=== PATIENT | male | born 1955 | race American Indian/Alaskan Native ===

== ENCOUNTER 2020-03-07 09:22 | Emergency (ER) | payer OTHER ==
--- NOTE | 2020-03-07 09:55 | Emergency Department Report ---
ED Lower Extremity HPI - General Chief Complaint: Extremity Problem,Nontraumatic Stated Complaint: RIGHT LIEG PAIN Time Seen by Provider: 03/07/20 09:53 Source: patient Mode of arrival: Ambulatory Limitations: No Limitations - History of Present Illness Initial Comments: 64-year-old male was brought to the ER today by EMS with complaints of bleeding from a vein in his right thigh. Patient reports that he got up this morning to use the bathroom, while sitting on the toilet commode he noticed there was blood dripping down his right leg. When he looked further he noticed that 1 of his varicose veins to his right thigh was bleeding. Patient states that he could not get the bleeding under control so he called EMS. Pressure dressing was applied by EMS, and since patient has arrived in the ER bleeding has been controlled. He denies any obvious injury to the leg. He denies any pain or any other symptoms today. MD Complaint: other (Bleeding from right thigh) -: Sudden (this morning) Injury: Thigh: Right - Related Data Home Medications Medication Instructions Recorded Confirmed Last Taken Diclofenac Sodium 75 mg PO BID PRN 04/24/17 04/24/17 Unknown Gabapentin 300 mg PO TID 04/24/17 04/24/17 Unknown Sildenafil Citrate [Viagra] 100 mg PO DAILY PRN 04/24/17 04/24/17 Unknown lisinopriL [Zestril TAB] 5 mg PO DAILY 04/24/17 04/24/17 Unknown Previous Rx's Medication Instructions Recorded Last Taken Type Aspirin 325 mg PO QDAY #30 tablet 04/26/17 Unknown Rx AtorvaSTATin [Lipitor] 80 mg PO QHS #30 tablet 04/26/17 Unknown Rx Famotidine [Pepcid] 20 mg PO QDAY #30 tablet 04/26/17 Unknown Rx Allergies Allergy/AdvReac Type Severity Reaction Status Date / Time No Known Allergies Allergy Verified 04/24/17 10:39 ED Review of Systems ROS: Stated complaint: RIGHT LIEG PAIN Other details as noted in HPI Comment: All other systems reviewed and negative Constitutional: denies: chills, fever Respiratory: denies: cough, shortness of breath, wheezing Cardiovascular: denies: chest pain, palpitations Musculoskeletal: denies: back pain, joint swelling, arthralgia Neurological: denies: headache, weakness, paresthesias Hematological/Lymphatic: easy bleeding ED Past Medical Hx - Past Medical History Previous Medical History?: Yes Hx Hypertension: Yes Hx Heart Attack/AMI: Yes (CAD) Hx Congestive Heart Failure: Yes Hx Diabetes: No Hx Asthma: No Hx COPD: No - Surgical History Past Surgical History?: Yes Hx Pacemaker: Yes - Social History Smoking Status: Never Smoker Substance Use Type: None - Medications Home Medications: Home Medications Medication Instructions Recorded Confirmed Last Taken Type Diclofenac Sodium 75 mg PO BID PRN 04/24/17 04/24/17 Unknown History Gabapentin 300 mg PO TID 04/24/17 04/24/17 Unknown History Sildenafil Citrate [Viagra] 100 mg PO DAILY PRN 04/24/17 04/24/17 Unknown History lisinopriL [Zestril TAB] 5 mg PO DAILY 04/24/17 04/24/17 Unknown History Aspirin 325 mg PO QDAY #30 tablet 04/26/17 Unknown Rx AtorvaSTATin [Lipitor] 80 mg PO QHS #30 tablet 04/26/17 Unknown Rx Famotidine [Pepcid] 20 mg PO QDAY #30 tablet 04/26/17 Unknown Rx ED Physical Exam - General Limitations: No Limitations General appearance: alert, in no apparent distress - Head Head exam: Present: atraumatic, normocephalic, normal inspection - Respiratory Respiratory exam: Present: normal lung sounds bilaterally. Absent: respiratory distress - Cardiovascular Cardiovascular Exam: Present: regular rate, normal rhythm. Absent: systolic murmur, diastolic murmur, rubs, gallop - Extremities Exam Extremities exam: Present: other (Pressure dressing noted to the right thigh, this was removed by me, patient does have a small scabbed area over a varicose vein noted to the posterior right thigh. No active bleeding noted. No signs of infection. No tenderness on palpation.) ED Course Vital Signs 03/07/20 09:29 Temperature 98.3 F Pulse Rate 76 Respiratory 20 Rate Blood Pressure 116/76 O2 Sat by Pulse 96 Oximetry ED Lower Extremity MDM - Medical Decision Making Patient had a bleeding varicose vein which started this morning. Bleeding has now improved with pressure dressing. There is no signs of infection. Patient has no other complaints. Discussed with patient to continue pressure dressing today and elevation of the leg. Recommend close follow-up with his PCP. He understands if anything changes or worsens to return to the ER. Critical care attestation.: If time is entered above; I have spent that time in minutes in the direct care of this critically ill patient, excluding procedure time. ED Disposition Clinical Impression: Bleeding from varicose vein Disposition: - TO HOME OR SELFCARE Is pt being admited?: No Does the pt Need Aspirin: No Condition: Stable Instructions: Varicose Veins (ED) Additional Instructions: You can leave the pressure dressing on for the rest of the day. Also recommend that she elevate your leg as often as possible today. Recommend close follow-up with your primary care doctor. If anything changes or worsens return to the ER. Referrals: PRIMARY CARE, [Referring] - 3-5 Days Time of Disposition: 10:11
[2020-03-08 13:15] VITALS: BP 116/76
== END 2020-03-07 10:44 | disposition home or self-care (01) ==
LOC: ED 09:22
DX: I83.891 Varicose veins of right lower extremity with other complications (principal); I11.0 Hypertensive heart disease with heart failure; I50.9 Heart failure, unspecified; I25.2 Old myocardial infarction; Z98.890 Other specified postprocedural states; Z79.899 Other long term (current) drug therapy
CPT/HCPCS: 99281

== ENCOUNTER 2021-12-21 18:55 | Emergency (ER) | payer OTHER ==
[2021-12-21] MEDS ORDERED: LIDOCAINE 1%/EPINEPHRINE 1:100,000 VIAL (20 ML) INFILTRATI NR (20:30)
[2021-12-21 20:36] LABS: Hematocrit 36.7 % (35.5-45.6); Hemoglobin 11.4 gm/dl (11.8-15.2); Mean Corpuscular HGB Conc 31 % (32-34); Mean Corpuscular Volume 89 fl (84-94); Platelet Count 109 K/mm3 (140-440); Red Blood Count 4.13 M/mm3 (3.65-5.03); Red Cell Distribution Width 15.9 % (13.2-15.2)
[2021-12-21] MEDS ORDERED: LIDOCAINE 2%/EPINEPHRINE 1:100,000 VIAL (20 ML) INFILTRATI ONE (20:37)
[2021-12-21 20:38] LABS: Basophils # (Auto) 0.2 K/mm3 (0.0-0.1); Basophils % (Auto) 2.6 % (0.0-1.8); Eosinophils # (Auto) 0.1 K/mm3 (0.0-0.4); Lymphocytes % (Auto) 16.4 % (13.4-35.0); Monocytes # (Auto) 0.5 K/mm3 (0.0-0.8); Monocytes % (Auto) 8.1 % (0.0-7.3)
--- NOTE | 2021-12-21 20:38 | Emergency Department Report ---
ED ENT HPI - General Chief complaint: Dental/Oral Stated complaint: MOUTH BLEEDING Time Seen by Provider: 12/21/21 19:59 Source: EMS Mode of arrival: Stretcher Limitations: No Limitations - History of Present Illness Initial comments: 66-year-old male with a past medical history history of CHF, coronary artery disease with [place], hypertension, previous CVA and pacemaker placement presents to the hospital with complaints of persistent bleeding from his dental extraction sites. Patient states he was on a unknown blood thinner for his heart and irregular heartbeat. He discontinued medication to days ago in preparation for dental procedure. Patient states on the way home after his dental extraction he started to have bleeding that has persisted despite attempting gauze pressure. Patient initially states that he was possibly on Coumadin. 4 hours into his visit his cardiac nurse called to say he takes Xarelto 20 mg daily and aspirin. Patient insists that he has not taken these medications in the last 2 days. Patient had attempting to hold pressure to site - Related Data Home Medications Medication Instructions Recorded Confirmed Last Taken Gabapentin 500 mg PO TID 04/24/17 06/29/20 Unknown Sildenafil Citrate [Viagra] 100 mg PO DAILY PRN 04/24/17 06/29/20 Unknown Cholecalciferol (Vitamin D3) 5,000 unit PO DAILY 06/29/20 06/29/20 Unknown [Vitamin D3] Cyanocobalamin [Vitamin B-12] 1,000 mcg PO DAILY 06/29/20 06/29/20 Unknown Furosemide [Lasix TAB] 40 mg PO QDAY 06/29/20 06/29/20 Unknown Oxycodone HCl/Acetaminophen 1 each PO Q6HR PRN 06/29/20 06/29/20 Unknown [Percocet 10/325 mg] Previous Rx's Medication Instructions Recorded Last Taken Type Famotidine [Pepcid] 20 mg PO QDAY #30 tablet 04/26/17 Unknown Rx Aspirin [Aspirin BABY CHEW TAB] 81 mg PO QDAY #30 tab.chew 07/01/20 Unknown Rx AtorvaSTATin [Lipitor] 80 mg PO QHS #30 tablet 07/01/20 Unknown Rx Clopidogrel [Plavix] 75 mg PO QDAY #30 07/01/20 Unknown Rx Furosemide [Lasix TAB] 40 mg PO QDAY #30 tablet 07/01/20 Unknown Rx Spironolactone [Aldactone] 12.5 mg PO QDAY #30 tablet 07/01/20 Unknown Rx carvediloL [Coreg] 3.125 mg PO BID #60 07/01/20 Unknown Rx lisinopriL [Zestril TAB] 20 mg PO DAILY #30 07/01/20 Unknown Rx Allergies Allergy/AdvReac Type Severity Reaction Status Date / Time No Known Allergies Allergy Verified 04/24/17 10:39 ED Dental HPI - General Chief complaint: Dental/Oral Stated complaint: MOUTH BLEEDING Time Seen by Provider: 12/21/21 19:59 Source: EMS Mode of arrival: Stretcher Limitations: No Limitations - Related Data Home Medications Medication Instructions Recorded Confirmed Last Taken Gabapentin 500 mg PO TID 04/24/17 06/29/20 Unknown Sildenafil Citrate [Viagra] 100 mg PO DAILY PRN 04/24/17 06/29/20 Unknown Cholecalciferol (Vitamin D3) 5,000 unit PO DAILY 06/29/20 06/29/20 Unknown [Vitamin D3] Cyanocobalamin [Vitamin B-12] 1,000 mcg PO DAILY 06/29/20 06/29/20 Unknown Furosemide [Lasix TAB] 40 mg PO QDAY 06/29/20 06/29/20 Unknown Oxycodone HCl/Acetaminophen 1 each PO Q6HR PRN 06/29/20 06/29/20 Unknown [Percocet 10/325 mg] Previous Rx's Medication Instructions Recorded Last Taken Type Famotidine [Pepcid] 20 mg PO QDAY #30 tablet 04/26/17 Unknown Rx Aspirin [Aspirin BABY CHEW TAB] 81 mg PO QDAY #30 tab.chew 07/01/20 Unknown Rx AtorvaSTATin [Lipitor] 80 mg PO QHS #30 tablet 07/01/20 Unknown Rx Clopidogrel [Plavix] 75 mg PO QDAY #30 07/01/20 Unknown Rx Furosemide [Lasix TAB] 40 mg PO QDAY #30 tablet 07/01/20 Unknown Rx Spironolactone [Aldactone] 12.5 mg PO QDAY #30 tablet 07/01/20 Unknown Rx carvediloL [Coreg] 3.125 mg PO BID #60 07/01/20 Unknown Rx lisinopriL [Zestril TAB] 20 mg PO DAILY #30 07/01/20 Unknown Rx Allergies Allergy/AdvReac Type Severity Reaction Status Date / Time No Known Allergies Allergy Verified 04/24/17 10:39 ED Review of Systems ROS: Stated complaint: MOUTH BLEEDING Other details as noted in HPI ED Past Medical Hx - Past Medical History Hx Hypertension: Yes Hx CVA: Yes Hx Heart Attack/AMI: Yes Hx Congestive Heart Failure: Yes Hx Diabetes: No Hx Asthma: No Hx COPD: No Additional medical history: etoh dependence - Surgical History Hx Pacemaker: Yes Hx Internal Defibrillator: Yes - Social History Smoking Status: Never Smoker - Medications Home Medications: Home Medications Medication Instructions Recorded Confirmed Last Taken Type Gabapentin 500 mg PO TID 04/24/17 06/29/20 Unknown History Sildenafil Citrate [Viagra] 100 mg PO DAILY PRN 04/24/17 06/29/20 Unknown History Famotidine [Pepcid] 20 mg PO QDAY #30 tablet 04/26/17 06/29/20 Unknown Rx Cholecalciferol (Vitamin D3) 5,000 unit PO DAILY 06/29/20 06/29/20 Unknown History [Vitamin D3] Cyanocobalamin [Vitamin B-12] 1,000 mcg PO DAILY 06/29/20 06/29/20 Unknown History Furosemide [Lasix TAB] 40 mg PO QDAY 06/29/20 06/29/20 Unknown History Oxycodone HCl/Acetaminophen 1 each PO Q6HR PRN 06/29/20 06/29/20 Unknown History [Percocet 10/325 mg] Aspirin [Aspirin BABY CHEW TAB] 81 mg PO QDAY #30 tab.chew 07/01/20 Unknown Rx AtorvaSTATin [Lipitor] 80 mg PO QHS #30 tablet 07/01/20 Unknown Rx Clopidogrel [Plavix] 75 mg PO QDAY #30 07/01/20 Unknown Rx Furosemide [Lasix TAB] 40 mg PO QDAY #30 tablet 07/01/20 Unknown Rx Spironolactone [Aldactone] 12.5 mg PO QDAY #30 tablet 07/01/20 Unknown Rx carvediloL [Coreg] 3.125 mg PO BID #60 07/01/20 Unknown Rx lisinopriL [Zestril TAB] 20 mg PO DAILY #30 07/01/20 Unknown Rx ED Physical Exam - General Limitations: No Limitations - Other Other exam information: General: No acute distress Head: Atraumatic Eyes: normal appearance ENT: Patient has 4 dental extraction sites with 3 active bleeding. Right upper quadrant left upper quadrant, right lower quadrant. Neck: Normal appearance, no midline tenderness Chest: Clear to auscultation bilaterally CV: Regular rate and rhythm Abdomen: Soft, normal bowel sounds, nontender, nondistended, no rebound or guarding Back: Normal inspection Extremity: Normal inspection, full range of motion Neuro: Alert O x 3, no facial asymmetry, speech clear, no gross motor sensory d eficit Psych: Appropriate behavior Skin: No rash ED Course Vital Signs 12/21/21 12/21/21 12/21/21 19:35 19:45 20:01 Pulse Rate 84 79 78 Respiratory 16 19 22 Rate Blood Pressure 105/65 101/58 Blood Pressure 105/68 [Left] O2 Sat by Pulse 99 96 Oximetry 12/21/21 12/21/21 12/21/21 20:15 20:31 20:45 Pulse Rate 76 78 76 Respiratory 19 18 18 Rate Blood Pressure 104/68 104/68 104/68 Blood Pressure [Left] O2 Sat by Pulse 98 99 97 Oximetry 12/21/21 12/21/21 12/21/21 21:01 21:15 21:31 Pulse Rate 80 75 80 Respiratory 22 28 H 20 Rate Blood Pressure 104/68 104/68 81/67 Blood Pressure [Left] O2 Sat by Pulse 99 97 99 Oximetry 12/21/21 12/21/21 12/21/21 21:45 22:01 22:10 Pulse Rate 74 76 Respiratory 19 19 16 Rate Blood Pressure 81/67 81/67 Blood Pressure 111/67 [Left] O2 Sat by Pulse 99 99 96 Oximetry - Reevaluation(s) Reevaluation #1: 12/22/21 02:56 pt bp now 92 systolic - Consultations Consultation #1: 12/22/21 01:[address] Tiffany CORTEZ doctor with [facility]. Recommends to attempt to cauterize bleeding sockets with silver nitrate sticks and hold direct pressure. She has refused to accept pt at this time. 12/22/21 02:55 case rediscussed and accepted to for transfer to [facility] ER due to continue bleeding and failed hemostasis. 12/22/21 03:00 Case discussed with ED attending DR Arellano Consultation #2: 12/22/21 01:44 case d/w With Dr Rosas with [facility] who declined to accept the patient. Stating that no surgical intervention is recommeded at this time. SHe advises correction of coagulaopthy and does not recommend the surgical intervention. Refuses to accept patient at this time. ED Medical Decision Making - Lab Data Result diagrams: 12/22/21 01:10 12/21/21 20:19 Lab Results 12/21/21 12/21/21 12/21/21 Range/Units 20:19 20:19 20:19 WBC 6.3 (4.5-11.0) K/mm3 RBC 4.13 (3.65-5.03) M/mm3 Hgb 11.4 L (11.8-15.2) gm/dl Hct 36.7 (35.5-45.6) % MCV 89 (84-94) fl MCH 28 (28-32) pg MCHC 31 L (32-34) % RDW 15.9 H (13.2-15.2) % Plt Count 109 L (140-440) K/mm3 Lymph % (Auto) 16.4 (13.4-35.0) % [place] % (Auto) 8.1 H (0.0-7.3) % Eos % (Auto) 2.0 (0.0-4.3) % Baso % (Auto) 2.6 H (0.0-1.8) % Lymph # (Auto) 1.0 L (1.2-5.4) K/mm3 [place] # (Auto) 0.5 (0.0-0.8) K/mm3 Eos # (Auto) 0.1 (0.0-0.4) K/mm3 Baso # (Auto) 0.2 H (0.0-0.1) K/mm3 Seg Neutrophils % 70.9 H (40.0-70.0) % Seg Neutrophils # 4.5 (1.8-7.7) K/mm3 PT 37.2 H (12.2-14.9) Sec. INR 3.43 H (0.87-1.13) APTT 47.0 H (24.2-36.6) Sec. Sodium 138 (137-145) mmol/L Potassium 4.4 (3.6-5.0) mmol/L Chloride 102.7 (98-107) mmol/L Carbon Dioxide 20 L (22-30) mmol/L Anion Gap 20 mmol/L BUN 51 H (9-20) mg/dL Creatinine 1.6 H (0.8-1.3) mg/dL Estimated GFR 53 ml/min BUN/Creatinine Ratio 32 % Glucose 109 H (75-100) mg/dL Calcium 8.8 (8.4-10.2) mg/dL Total Bilirubin (0.1-1.2) mg/dL Direct Bilirubin (0-0.2) mg/dL Indirect Bilirubin mg/dL AST (5-40) units/L ALT (7-56) units/L Alkaline Phosphatase (35-129) units/L Total Protein (6.3-8.2) g/dL Albumin (3.9-5) g/dL Albumin/Globulin Ratio % Blood Type Antibody Screen 12/21/21 12/21/21 12/22/21 Range/Units 20:20 23:41 01:10 WBC 7.4 (4.5-11.0) K/mm3 RBC 3.69 (3.65-5.03) M/mm3 Hgb 10.3 L (11.8-15.2) gm/dl Hct 32.7 L (35.5-45.6) % MCV 89 (84-94) fl MCH 28 (28-32) pg MCHC 32 (32-34) % RDW 15.7 H (13.2-15.2) % Plt Count 120 L (140-440) K/mm3 Lymph % (Auto) (13.4-35.0) % [place] % (Auto) (0.0-7.3) % Eos % (Auto) (0.0-4.3) % Baso % (Auto) (0.0-1.8) % Lymph # (Auto) (1.2-5.4) K/mm3 [place] # (Auto) (0.0-0.8) K/mm3 Eos # (Auto) (0.0-0.4) K/mm3 Baso # (Auto) (0.0-0.1) K/mm3 Seg Neutrophils % (40.0-70.0) % Seg Neutrophils # (1.8-7.7) K/mm3 PT (12.2-14.9) Sec. INR (0.87-1.13) APTT (24.2-36.6) Sec. Sodium (137-145) mmol/L Potassium (3.6-5.0) mmol/L Chloride (98-107) mmol/L Carbon Dioxide (22-30) mmol/L Anion Gap mmol/L BUN (9-20) mg/dL Creatinine (0.8-1.3) mg/dL Estimated GFR ml/min BUN/Creatinine Ratio % Glucose (75-100) mg/dL Calcium (8.4-10.2) mg/dL Total Bilirubin 2.70 H (0.1-1.2) mg/dL Direct Bilirubin 1.2 H (0-0.2) mg/dL Indirect Bilirubin 1.5 mg/dL AST 29 (5-40) units/L ALT 14 (7-56) units/L Alkaline Phosphatase 98 (35-129) units/L Total Protein 7.1 (6.3-8.2) g/dL Albumin 3.5 L (3.9-5) g/dL Albumin/Globulin Ratio 1.0 % Blood Type A POSITIVE Antibody Screen Negative - Medical Decision Making 66-year-old male presents to the hospital with persistent bleeding from dental extraction site. Initially it was thought that patient was on Coumadin based on his history and elevated INR. Cardiac nurse prefers that patient is on Xarelto and aspirin. As per medical record review patient has a history of alcohol abuse. LFTs ordered. Attempted to tamponade bleeding with lidocaine with epinephrine infiltration of gums and teabag compression. Bleeding continued. T hen attempted to stop bleeding with Surgicel gauze packing. Difficulty tamponade of bleeding secondary to underlying coagulopathy therefore PCC and vitamin K ordered. Attempted to transfer patient to [facility] and [place] and discussed case with OMFS attendings. They declined to accept patient and offered additional tips to control bleeding. I then attempted to cauterize and place lidocaine with epi soaked gauze to tamponade the bleeding. Repeat H&H showed mild drop in hemoglobin. I called the pharmacy to see if we have topical TXA. Unfortunately only have the IV version which cannot be used for topical use as per pharmacist. I attempted to place a stitch in the bleeding right mandibular site for bleeding. I also attempted to repack with surgiceal and hold direct pressure, however I was unable to stop bleeding. Mild hypotension tx with NS bolus. [facility] OMFS MD recontacted and accepted pt for transfer to ED. Case d/w ED attending Dr Arellano. DDAVP ordered. Tech holding pressure to to the area. Critical Care Time: Yes Critical care time in (mins) excluding proc time.: 120 Critical care attestation.: If time is entered above; I have spent that time in minutes in the direct care of this critically ill patient, excluding procedure time. Critical Care Time: 120 Minutes of critical care time excluding procedures were used in the care of the patient. I came immediately to the bedside upon patient's arrival. I obtained history from EMS at the bedside. I discussed treatment plan with the nursing team members. I reviewed electronic record.Patient required multiple interventions and reassessments. ED Disposition Clinical Impression: Post-op bleeding, S/P tooth extraction, Coagulopathy, Elevated INR, Mild renal insufficiency Disposition: 02 SHORT TERM HOSPITAL Is pt being admited?: No Condition: Stable Time of Disposition: 03:11
[2021-12-21 20:45] LABS: INR 3.43 (0.87-1.13)
[2021-12-21 20:51] LABS: Calcium 8.8 mg/dL (8.4-10.2)
[2021-12-21] MEDS ORDERED: SODIUM CHLORIDE 0.9% 500 ML 500 ML IV ONE (22:17)
[2021-12-21] MEDS ORDERED: PROTHROMBIN COMPLEX HUMAN IV ONE ×2 (22:21→23:00)
[2021-12-21] MEDS ORDERED: PHYTONADIONE(ADULT ONLY) 10 MG in SODIUM CHLORIDE 0.9% 50 ML IV ONE (23:33)
[2021-12-22] MEDS ORDERED: SILVER NITRATE APPLICATOR 1 EA TP ONE (01:11)
[2021-12-22 01:18] LABS: Albumin 3.5 g/dL (3.9-5); Bilirubin,Direct 1.2 mg/dL (0-0.2)
[2021-12-22 01:47] LABS: Hematocrit 32.7 % (35.5-45.6); Hemoglobin 10.3 gm/dl (11.8-15.2); Mean Corpuscular HGB Conc 32 % (32-34); Mean Corpuscular Volume 89 fl (84-94); Platelet Count 120 K/mm3 (140-440); Red Blood Count 3.69 M/mm3 (3.65-5.03); Red Cell Distribution Width 15.7 % (13.2-15.2)
[2021-12-22] MEDS ORDERED: SODIUM CHLORIDE 0.9% 500 ML 500 ML IV ONE (02:29)
[2021-12-22] MEDS ORDERED: SODIUM CHLORIDE 0.9% IV ONE (03:03)
[2021-12-22] MEDS ORDERED: DESMOPRESSIN ACETATE IV ONE (03:03)
[2021-12-22 04:33] VITALS: BP 87/49
--- NOTE | 2021-12-22 10:11 | Electrocardiograph Report ---
[facility] Test Date: 2021-12-22 Test Time: 00:18:52 Pat Name: AWILDA RAMOS Department: Room: Gender: M Senior Internal Auditor: NURSE : [id number] Requested By: REMINGTON RODRIGUES Order Number: [id number] Reading MD: Gagan Thompson Measurements Intervals [place] Rate: 81 P: 69 ND: 249 QRS: -93 QRSD: 196 T: 79 QT: 486 QTc: 550 Interpretive Statements Sinus rhythm vs multifocal atrial rhythm Atrial premature complexes Prolonged ND interval Right bundle branch block/ivcd ST elevation secondary to IVCD No previous ECG available for comparison Electronically Signed On 12-22-2021 10:10:45 EST by Gagan Thompson
== END 2021-12-22 04:44 | disposition short-term general hospital (02) ==
LOC: ED 18:55
DX: L76.22 Postprocedural hemorrhage of skin and subcutaneous tissue following other procedure (principal); D68.4 Acquired coagulation factor deficiency; R79.0 Abnormal level of blood mineral; N28.9 Disorder of kidney and ureter, unspecified; I10 Essential (primary) hypertension
CPT/HCPCS: 36415; 80048; 80076; 85025; 85027; 85610; 85730; 86850; 86900; 86901; 93005; 93010; 96365; 96366; 96367; 96375; 99291; 99292; J2597; J3430; J3490; J7040; J7195

== ENCOUNTER 2021-12-28 13:52 | Emergency (ER) | payer OTHER ==
[2021-12-28 14:51] VITALS: BP 116/68
--- NOTE | 2021-12-28 16:15 | Event Note ---
ED Screening Note Date of service: 12/28/21 Time: 16:14 ED Screening Note: 66-year-old male presents to the ER with complaints of black stools. Patient states that he noticed the black stools last week after being discharged from the hospital. He states that he came here because he was having s ignificant bleeding from his mouth which they were unable to control here in it therefore he was transferred to the hospital in [place]. He saw the oral surgeon at the hospital and they were able to get the bleeding under control. He states that that night when he got home he noticed that his stools were black. He states that this has been persistent for the past week. He denies any associate abdominal pain, blood in his urine, vomiting. He states that he was on Xarelto for his history of having a pacemaker/defibrillator and history of IN but since he had a bleeding from his mouth he has not taken any of his Xarelto. This initial assessment/diagnostic orders/clinical plan/treatment(s) is/are subject to change based on patients health status, clinical progression and re- assessment by fellow clinical providers in the ED. Further treatment and workup at subsequent clinical providers discretion. Patient/guardian urged not to elope from the ED as their condition may be serious if not clinically assessed and managed. Initial orders include: Labs
[2021-12-28 16:38] LABS: Basophils % (Auto) 0.3 % (0.0-1.8); Eosinophils # (Auto) 0.2 K/mm3 (0.0-0.4); Eosinophils % (Auto) 2.1 % (0.0-4.3); Hematocrit 23.8 % (35.5-45.6); Hemoglobin 7.9 gm/dl (11.8-15.2); Lymphocytes # (Auto) 1.7 K/mm3 (1.2-5.4); Lymphocytes % (Auto) 22.7 % (13.4-35.0); Mean Corpuscular HGB Conc 33 % (32-34); Mean Corpuscular Volume 90 fl (84-94); Monocytes # (Auto) 0.8 K/mm3 (0.0-0.8); Monocytes % (Auto) 10.6 % (0.0-7.3); Platelet Count 208 K/mm3 (140-440); Red Blood Count 2.65 M/mm3 (3.65-5.03); Red Cell Distribution Width 17.1 % (13.2-15.2)
[2021-12-28 16:49] LABS: INR 1.06 (0.87-1.13)
[2021-12-28 16:50] LABS: Partial Thromboplastin Time 34.5 Sec. (24.2-36.6)
--- NOTE | 2021-12-28 16:53 | Emergency Department Report ---
ED GI Bleed HPI - General Chief complaint: GI Bleed Stated complaint: BOWELS ARE BLACK Time Seen by Provider: 12/28/21 16:14 Source: patient Mode of arrival: Ambulatory Limitations: No Limitations - History of Present Illness Initial comments: 66-year-old male with a past medical history of CHF, CAD, hypertension, AICD, and previous CVA presents to the hospital complaining of black stool x1 week. Patient was seen here by myself 1 week ago for intractable oral bleeding after extraction of 4 teeth. Patient had bleeding for several hours with elevated INR and was on Xarelto 2 days prior to dental extraction. He was treated with Kcentra, desmopressin, and multiple interventions were attempted and patient continued to bleed. Subsequent transfer to another facility with ENT coverage. Patient states once he arrived bleeding stopped and no further intervention was required. Patient filled up a 2 L suction canister in addition to multiple, bags with blood from the mouth. Patient denies abdominal pain. He has not restarted Xarelto since his ED presentation. Patient is otherwise asymptomatic and does not endorse shortness of breath, chest pain, or lightheadedness - Related Data Home Medications Medication Instructions Recorded Confirmed Last Taken Gabapentin 500 mg PO TID 04/24/17 06/29/20 Unknown Sildenafil Citrate [Viagra] 100 mg PO DAILY PRN 04/24/17 06/29/20 Unknown Cholecalciferol (Vitamin D3) 5,000 unit PO DAILY 06/29/20 06/29/20 Unknown [Vitamin D3] Cyanocobalamin [Vitamin B-12] 1,000 mcg PO DAILY 06/29/20 06/29/20 Unknown Furosemide [Lasix TAB] 40 mg PO QDAY 06/29/20 06/29/20 Unknown Oxycodone HCl/Acetaminophen 1 each PO Q6HR PRN 06/29/20 06/29/20 Unknown [Percocet 10/325 mg] Previous Rx's Medication Instructions Recorded Last Taken Type Famotidine [Pepcid] 20 mg PO QDAY #30 tablet 04/26/17 Unknown Rx Aspirin [Aspirin BABY CHEW TAB] 81 mg PO QDAY #30 tab.chew 07/01/20 Unknown Rx AtorvaSTATin [Lipitor] 80 mg PO QHS #30 tablet 07/01/20 Unknown Rx Clopidogrel [Plavix] 75 mg PO QDAY #30 07/01/20 Unknown Rx Furosemide [Lasix TAB] 40 mg PO QDAY #30 tablet 07/01/20 Unknown Rx Spironolactone [Aldactone] 12.5 mg PO QDAY #30 tablet 07/01/20 Unknown Rx carvediloL [Coreg] 3.125 mg PO BID #60 07/01/20 Unknown Rx lisinopriL [Zestril TAB] 20 mg PO DAILY #30 07/01/20 Unknown Rx Ferrous Sulfate [Ferrous Sulfate 324 mg PO DAILY #30 tab 12/28/21 Unknown Rx 324 MG] Allergies Allergy/AdvReac Type Severity Reaction Status Date / Time No Known Allergies Allergy Verified 12/28/21 14:47 ED Review of Systems ROS: Stated complaint: BOWELS ARE BLACK Other details as noted in HPI Comment: All other systems reviewed and negative ED Past Medical Hx - Past Medical History Hx Hypertension: Yes Hx CVA: Yes Hx Heart Attack/AMI: Yes Hx Congestive Heart Failure: Yes Hx Diabetes: No Hx Asthma: No Hx COPD: No Additional medical history: etoh dependence - Surgical History Hx Pacemaker: Yes Hx Internal Defibrillator: Yes - Social History Smoking Status: Never Smoker - Medications Home Medications: Home Medications Medication Instructions Recorded Confirmed Last Taken Type Gabapentin 500 mg PO TID 04/24/17 06/29/20 Unknown History Sildenafil Citrate [Viagra] 100 mg PO DAILY PRN 04/24/17 06/29/20 Unknown History Famotidine [Pepcid] 20 mg PO QDAY #30 tablet 04/26/17 06/29/20 Unknown Rx Cholecalciferol (Vitamin D3) 5,000 unit PO DAILY 06/29/20 06/29/20 Unknown History [Vitamin D3] Cyanocobalamin [Vitamin B-12] 1,000 mcg PO DAILY 06/29/20 06/29/20 Unknown History Furosemide [Lasix TAB] 40 mg PO QDAY 06/29/20 06/29/20 Unknown History Oxycodone HCl/Acetaminophen 1 each PO Q6HR PRN 06/29/20 06/29/20 Unknown History [Percocet 10/325 mg] Aspirin [Aspirin BABY CHEW TAB] 81 mg PO QDAY #30 tab.chew 07/01/20 Unknown Rx AtorvaSTATin [Lipitor] 80 mg PO QHS #30 tablet 07/01/20 Unknown Rx Clopidogrel [Plavix] 75 mg PO QDAY #30 07/01/20 Unknown Rx Furosemide [Lasix TAB] 40 mg PO QDAY #30 tablet 07/01/20 Unknown Rx Spironolactone [Aldactone] 12.5 mg PO QDAY #30 tablet 07/01/20 Unknown Rx carvediloL [Coreg] 3.125 mg PO BID #60 07/01/20 Unknown Rx lisinopriL [Zestril TAB] 20 mg PO DAILY #30 07/01/20 Unknown Rx Ferrous Sulfate [Ferrous Sulfate 324 mg PO DAILY #30 tab 12/28/21 Unknown Rx 324 MG] ED Physical Exam - General Limitations: No Limitations - Other Other exam information: General: No acute distress Head: Atraumatic Eyes: normal appearance ENT: Moist mucous membranes, no active bleeding in the airway Neck: Normal appearance, no midline tenderness Chest: Clear to auscultation bilaterally CV: Regular rate and rhythm Abdomen: Soft, normal bowel sounds, nontender, nondistended, no rebound or guarding Back: Normal inspection Extremity: Normal inspection, full range of motion Neuro: Alert O x 3, no facial asymmetry, speech clear, no gross motor sensory deficit Psych: Appropriate behavior Skin: No rash ED Course Vital Signs 12/28/21 14:50 Temperature 98.0 F Pulse Rate 75 Respiratory 20 Rate Blood Pressure 116/68 O2 Sat by Pulse 100 Oximetry - Consultations Consultation #1: 12/28/21 17:[address] Mauri BISWAS on-call who is agreeable patient may follow-up in office for further work-up ED Medical Decision Making - Lab Data Result diagrams: 12/28/21 16:15 12/28/21 16:15 Lab Results 12/28/21 12/28/21 12/28/21 Range/Units 16:15 16:15 16:15 WBC 7.5 (4.5-11.0) K/mm3 RBC 2.65 L (3.65-5.03) M/mm3 Hgb 7.9 L (11.8-15.2) gm/dl Hct 23.8 L (35.5-45.6) % MCV 90 (84-94) fl MCH 30 (28-32) pg MCHC 33 (32-34) % RDW 17.1 H (13.2-15.2) % Plt Count 208 (140-440) K/mm3 Lymph % (Auto) 22.7 (13.4-35.0) % [place] % (Auto) 10.6 H (0.0-7.3) % Eos % (Auto) 2.1 (0.0-4.3) % Baso % (Auto) 0.3 (0.0-1.8) % Lymph # (Auto) 1.7 (1.2-5.4) K/mm3 [place] # (Auto) 0.8 (0.0-0.8) K/mm3 Eos # (Auto) 0.2 (0.0-0.4) K/mm3 Baso # (Auto) 0.0 (0.0-0.1) K/mm3 Seg Neutrophils % 64.3 (40.0-70.0) % Seg Neutrophils # 4.8 (1.8-7.7) K/mm3 PT 15.0 H (12.2-14.9) Sec. INR 1.06 (0.87-1.13) APTT 34.5 (24.2-36.6) Sec. Sodium 134 L (137-145) mmol/L Potassium 4.3 (3.6-5.0) mmol/L Chloride 99.0 (98-107) mmol/L Carbon Dioxide 19 L (22-30) mmol/L Anion Gap 20 mmol/L BUN 31 H (9-20) mg/dL Creatinine 1.4 H (0.8-1.3) mg/dL Estimated GFR > 60 ml/min BUN/Creatinine Ratio 22 % Glucose 200 H (75-100) mg/dL Calcium 9.0 (8.4-10.2) mg/dL Total Bilirubin 1.80 H (0.1-1.2) mg/dL AST 27 (5-40) units/L ALT 12 (7-56) units/L Alkaline Phosphatase 101 (35-129) units/L Total Protein 7.4 (6.3-8.2) g/dL Albumin 3.9 (3.9-5) g/dL Albumin/Globulin Ratio 1.1 % - Medical Decision Making 66-year male presents to the hospital complaining of black stools. 1 week ago patient was here with copious oral bleeding and coagulopathy requiring aggressive measures and transfer. Patient is not currently on Xarelto and denies abdominal pain or symptoms of anemia. I suspect melena is secondary to significant oral bleed. Given that hemoglobin is 7.9, patient is asymptomatic, patient is no longer on blood thinners, normal coags, and has normal vital signs he does not require blood fusion at this time. Close outpatient follow-up with PMD will be recommended. Iron tablets will be provided. Outpatient GI follow- up will also be recommended however, low suspicion for GI bleed at this time but follow-up is warranted. Critical Care Time: No Critical care attestation.: If time is entered above; I have spent that time in minutes in the direct care of this critically ill patient, excluding procedure time. ED Disposition Clinical Impression: Melena, History of oral hemorrhage, Anemia Disposition: HOME / SELF CARE / HOMELESS Is pt being admited?: No Does the pt Need Aspirin: No Condition: Stable Instructions: Gastrointestinal Bleeding Additional Instructions: Take the medication as prescribed. Follow-up with your doctor or doctor/clinic provided. Return if symptoms worsen as indicated by your discharge instructions. Iron tablets may cause constipation. Take stool softeners as needed. Your Hemoglobin is 7.9 currently. Prescriptions: Ferrous Sulfate [Ferrous Sulfate 324 MG] 324 mg PO DAILY #30 tab Referrals: YO PALMER MD [Staff Physician] - 3-5 Days (GI doctor) your, primary care doctor [Other] - 3-5 Days Forms: Accompanied Note Time of Disposition: 17:30
[2021-12-28 16:56] LABS: Alanine Aminotransferase 12 units/L (7-56); Albumin 3.9 g/dL (3.9-5); BUN/Creatinine Ratio 22; Blood Urea Nitrogen 31 mg/dL (9-20); Hemolysis Index 9
== END 2021-12-28 17:54 | disposition home or self-care (01) ==
LOC: ED 13:52
DX: K92.1 Melena (principal); R04.1 Hemorrhage from throat; D64.9 Anemia, unspecified; I10 Essential (primary) hypertension
CPT/HCPCS: 36415; 80053; 85025; 85610; 85730; 86850; 86900; 86901; 99283